=== PATIENT | female | born 1970 | race Caucasian/White ===

== ENCOUNTER 2023-05-14 09:58 | Outpatient (AMB) | payer OTHER, SELFPAY ==
[2023-05-14 10:15] VITALS: BP 118/72; PULSE 72; O2SAT 96; BMI 16.7
--- NOTE | 2023-05-14 10:15 | MHC.PC.OV ---
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 Patient would like gyno referral. She sould also like to talk about loss of sleep. 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 Peacock Last office visit/CPE: > 6 years Acute issue(s): ?Lipoma L foot pain and hammertoe - requests referrral b/L Forearm tendonitis R> L Sleep problems PMHx: Arthritis b/L hands. Cervical disc herniation. SurgHx: R carpal tunnel FHx: Mom: Allergies SocHx: Smoking 3 packs per week. EtOH 2 gl about once a week PFSH Medical History (Updated 05/14/23 @ 11:28 by Patrice Hitchcock) Carpal tunnel syndrome of right wrist Weight loss Surgical History (Updated 05/14/23 @ 10:28 by Maria Victoria Vásquez CMA) H/O lymph node excision Family History (Updated 05/14/23 @ 10:31 by Maria Victoria Vásquez CMA) Mother Allergies Father Rheumatoid arthritis Maternal Uncle Substance abuse Brother Mental health disorder Social History (Updated 05/14/23 @ 10:36 by Maria Victoria Vásquez CMA) Household Members: Spouse Both parents involved: No Caregiver staying overnight: No Housing: House Are you a primary career representative to a significant other at home: No Do you presently have visiting nurse or other home services: No 75 years or older and lives alone: No Alcohol intake: current Patient Tobacco Use Status: Current everyday Tobacco user Cigarettes Per Day: 3 e-Cigarette/Vaping Use: Former Use Special to needs: No service: No Current occupational status: employed 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 1. Little interest or pleasure in doing things: several days 2. Feeling down, depressed, or hopeless: more than half the days 3. Trouble falling or staying asleep, or sleeping too much: nearly every day 4. Feeling tired or having little energy: more than half the days 5. Poor appetite or overeating: several days 6. Feeling bad about yourself - or that you are a failure or have let yourself or your family down: several days 7. Trouble concentrating on things, such as reading the newspaper or watching television: several days 8. Moving or speaking so slowly that other people could have noticed. Or the opposite - being so fidgety or restless that you have been moving around a lot more than usual: nearly every day 9. Thoughts that you would be better off or of hurting yourself in some way: not at all Total score: 14 Source: Developed by Drs. Santos Hanna, Delia Kamara, Freddie Ramos and colleagues, with an educational jillian from [employer]. Thrive Questionnaire I am a: Patient What is your living situation today?: I have a steady place to live Within the past 12 months, did the food you bought not last and you didn't have the money to get more?: Never true Within the past 12 months, did you worry whether your food would run out before you got money to buy more?: Never true Do you have trouble paying for medicines?: Yes Do you have trouble getting transportation to medical appointments?: No Do you have trouble paying your heating and electricity bill?: No Do you have trouble taking care of your child, family member or friend?: No Do you have trouble with day-to-day activities such as bathing, preparing meals, shopping, managing finances, etc.?: No Are you currently unemployed and looking for a job?: Yes Are you interested in more education?: Yes AUDIT C Alcohol Use Questionnaire (AUDIT-C) 1. How often do you have a drink containing alcohol?: Monthly or less 2. How many drinks containing alcohol do you have on a typical day when you are drinking?: 1 or 2 3. How often do you have six or more drinks on one occasion?: Never Total Score: 1 JOSE-7 AMB Questionnaire JOSE-7 Feeling nervous, anxious, or on edge: 2 = More than half the days Not being able to stop or control worryin = Nearly every day Worrying too much about different things: 3 = Nearly every day Trouble relaxin = More than half the days Being so restless that it is hard to sit still: 2 = More than half the days Becoming easily annoyed or irritable: 1 = Several days Feeling afraid as if something awful might happen: 0 = Not at all Total JOSE-7 score (0-4 normal; 5-9 mild; 10-14 moderate; 15-21 severe): 13 Source: Developed by Drs. Santos Hanna, Delia Kamara, Freddie Ramos and colleagues, with an educational jillian from [employer]. Review of Systems Const Denies chills, Denies fatigue, Denies fever(s), Denies headache(s) and Denies weakness ENT Denies dizziness and Denies headache(s) Card Denies chest pain, Denies lightheadedness, Denies dyspnea and Denies other (Palpitations) Resp Denies cough, Denies dyspnea, Denies wheezing and Denies other ( shortness of breath) Musc Denies numbness and Denies tingling Neuro Denies dizziness, Denies headache(s), Denies numbness, Denies tingling, Denies paresthesias and Denies weakness Psych Denies anxiety and Denies depression Endo Denies fatigue Aller/Immun Denies wheezing Physical exam (Primary Care) Vital Signs: Last Vital Signs Pulse 72 05/14/23 10:15 BP 118/72 05/14/23 10:15 Pulse Ox 96 05/14/23 10:15 Oxygen Delivery Method Room Air 05/14/23 10:15 BMI result Body Mass Index 16.7 Tobacco/Smoking Status: Tobacco use Status Tobacco use date assessed 05/14/23 05/14/23 10:44 Patient Tobacco Use Status Current everyday Tobacco 05/14/23 10:44 e-Cigarette/Vaping Use Former Use 05/14/23 10:44 PHQ-9: PHQ-9 Score PHQ-9: Total score 14 05/14/23 11:05 Const General: no acute distress and well developed Nutritional Appearance: well nourished Orientation/consciousness: patient oriented x3 HENMT Head: Yes normocephalic and Yes atraumatic Eyes General: appearance normal, both eyes and all related structures Pupils: Equal, round and reactive pupils present EOM: EOMs intact bilaterally Resp Effort & Inspection: normal respiratory effort Auscultation: clear to auscultation bilaterally Cardio Rate: regular rate Rhythm: regular rhythm Heart sounds: S1 normal heart sound present, S2 normal heart sound present, no gallops, no murmurs and no rubs Neuro General: patient oriented x3 and gait normal Cranial nerves: Yes Equal, round and reactive pupils present Psych Affect: normal affect Assessment and Plan Assessment & Plan (1) Mass of left axilla: Code(s): R22.32 - Localized swelling, mass and lump, left upper limb Plan: Likely a lipoma; mass is rounded, heterogeneous and soft without matting. Will check an ultrasound to rule out other possibilities (2) Left foot pain: Code(s): M79.672 - Pain in left foot Plan: Patient requests referral to Podiatry which was made (3) Smoker: Code(s): F17.200 - Nicotine dependence, unspecified, uncomplicated Plan: Will give her Nicorette gum as requested (4) COPD (chronic obstructive pulmonary disease): Code(s): J44.9 - Chronic obstructive pulmonary disease, unspecified Plan: Likely 40 pack year history of smoking. Mild COPD changes heard on auscultation Check chest x-ray (5) Cervical disc herniation: Code(s): M50.20 - Other cervical disc displacement, unspecified cervical region Plan: History of cervical disc herniation and patient still has ongoing cervicalgia and neck muscle tension She does not want medications and agrees to physical therapy which she has had in the distant past. Physical therapy ordered (6) Shoulder pain: Code(s): M25.519 - Pain in unspecified shoulder Plan: Likely secondary to neck pain As above, physical therapy ordered (7) Difficulty sleeping: Code(s): G47.9 - Sleep disorder, unspecified Plan: This appears to be secondary to anxiety Trial sertraline (8) Forearm tendonitis: Code(s): M77.8 - Other enthesopathies, not elsewhere classified Plan: Referred for occupational therapy Can also use Aspercreme OTC (9) Laboratory exam ordered as part of routine general medical examination: Code(s): Z00.00 - Encounter for general adult medical examination without abnormal findings Plan: Check labs Orders: Orders Comprehensive [place]. Panel Fast Today Z00.00 - Encounter for general adult medical examination without abnormal findings Lipid Panel Today Z00.00 - Encounter for general adult medical examination without abnormal findings TSH reflex Free T4 Today Z00.00 - Encounter for general adult medical examination without abnormal findings Vitamin D 25-OH Total Today E55.9 - Vitamin D deficiency, unspecified Microalbumin, Random (w Creat) Today I10 - Essential (primary) hypertension UA and rflx microscopic Today Z00.00 - Encounter for general adult medical examination without abnormal findings OT Evaluation and Treatment Today M77.8 - Other enthesopathies, not elsewhere classified PT Evaluation and Treatment Today M25.519 - Pain in unspecified shoulder, M50.20 - Other cervical disc displacement, unspecified cervical region US chest Today R22.32 - Localized swelling, mass and lump, left upper limb XR chest 2V Today F17.200 - Nicotine dependence, unspecified, uncomplicated, J44.9 - Chronic obstructive pulmonary disease, unspecified Referrals [employer] Referral Z12.4 - Encounter for screening for malignant neoplasm of cervix Podiatry Referral M79.672 - Pain in left foot Medications: New sertraline 25 mg PO DAILY 30 tabs 2RF 30 days nicotine (polacrilex) (Nicorette) 2 mg buccal Q2H 120 ea 3RF 28 days Coding Level of Care Code New Pt Level 4 (33306) Diagnoses Mass of left axilla R22.32 Left foot pain M79.672 Smoker F17.200 COPD (chronic obstructive pulmonary disease) J44.9 Cervical disc herniation M50.20 Shoulder pain M25.519 Difficulty sleeping G47.9 Forearm tendonitis M77.8 Laboratory exam ordered as part of routine general medical examination Z00.00
== END 2023-05-14 11:37 | disposition home or self-care (01) ==
PROVIDERS: Visit Provider Family Medicine
DX: R22.32 Localized swelling, mass and lump, left upper limb (principal); M79.672 Pain in left foot; F17.200 Nicotine dependence, unspecified, uncomplicated; J44.9 Chronic obstructive pulmonary disease, unspecified; M50.20 Other cervical disc displacement, unspecified cervical region; M25.519 Pain in unspecified shoulder; G47.9 Sleep disorder, unspecified; M77.8 Other enthesopathies, not elsewhere classified; Z00.00 Encounter for general adult medical examination without abnormal findings
CPT/HCPCS: 99204

== ENCOUNTER 2023-05-26 11:13 | Outpatient (REF) | payer OTHER, SELFPAY ==
--- NOTE | ~2023-05-26 | US_ITS ---
EXAMINATION: US CHEST CLINICAL INFORMATION: Mass left axilla, rounded soft, question lipoma versus lymph node. Left flank mass under/lateral to left axilla. COMPARISON: None available. TECHNIQUE: Targeted ultrasound images were obtained by the theatre manager of the area of concern as indicated by the patient in the left flank, just under and lateral to the left axilla. Radiologist was not in attendance. Images were later provided for interpretation. FINDINGS: In the area of concern indicated by the patient in the left flank, just under and lateral to the left axilla, there is a 3.7 x 4.7 x 0.7 cm well-circumscribed, hypoechoic mass with striations. Internal vascularity was not demonstrated. US/US chest IMPRESSION: 1. 4.7 cm soft tissue mass in the area of concern indicated by the the patient in the left flank, just under and lateral to the left axilla. Decisions regarding further management including additional imaging such as MRI, treatment, surgical consultation and/or biopsy should be based on the clinical assessment. Low-grade liposarcomas may be sonographically indistinguishable from lipomas on ultrasound images. 2. Recommend follow up ultrasound in 6 months.
--- NOTE | ~2023-05-26 | XR_ITS ---
EXAMINATION: XR CHEST CLINICAL INFORMATION: Nicotine dependence. COMPARISON: None available. TECHNIQUE: 2 views of the chest were obtained. FINDINGS: There is generalized hyperinflation. No focal infiltrate or pleural effusions. The heart and mediastinal structures are unremarkable. XR/XR chest 2V IMPRESSION: Generalized hyperinflation is nonspecific, but can be seen with COPD. No acute cardiopulmonary process.
[2023-05-26 13:52] LABS: Alanine Aminotransferase 17 U/L (0-31); Albumin Level 4.4 g/dL (3.5-5.0); Alkaline Phosphatase 55 U/L (39-117); Anion Gap 11 (12-20); Aspartate Amino Transferase 22 U/L (5-31); Bilirubin Total 0.3 mg/dL (0.0-1.0); Blood Urea Nitrogen 12 mg/dL (9-16); Calcium 9.6 mg/dL (8.4-10.2); Carbon Dioxide 31 mmol/L (22-29); Chloride 104 mmol/L (96-108); Cholesterol 208 mg/dL; Estimated Glomerular Filt Rate > 60; Glucose Fasting 113 mg/dL (60-99); HDL Cholesterol 76 mg/dL; LDL Cholesterol Calculated 120 mg/dl; Potassium 3.9 mmol/L (3.3-5.1); Sodium 142 mmol/L (135-145); Total Protein 7.1 g/dL (6.5-8.0); Triglycerides 63 mg/dL
[2023-05-26 14:12] LABS: TSH reflex Free T4 1.48 uIU/mL (0.32-4.0); Vitamin D 25-OH Total 90.6 ng/mL (>30)
[2023-05-26 16:37] LABS: Appearance Urine Turbid; Color Urine Yellow; Glucose Urine UA Negative (Negative); Leukocyte Esterase Urine Negative (Negative); Nitrite Urine Negative (Negative); Specific Gravity - Urine >= 1.030 (1.005-1.025); UMIC TRIGGER UA YES; Urine Blood Trace (Negative); Urine Ketones Negative (Negative); Urine Protein Negative (Neg-Trace)
[2023-05-26 17:00] LABS: Bacteria Urine Trace (None Seen); Hyaline Casts Urine 0-2 /LPF (0-2); RBC Urine 0-2 /HPF (0-2); WBC Urine 0-5 /HPF (0-5)
[2023-05-26 17:25] LABS: Creatinine Urine 199.62 mg/dL; Microalbum/Creatinine Ratio Ur 11.5 ug/mg cr
== END 2023-05-26 11:14 | disposition home or self-care (01) ==
LOC: HO.HMGCX 11:13
PROVIDERS: PCP Family Medicine; Visit Provider Family Medicine
DX: Z00.00 Encounter for general adult medical examination without abnormal findings (principal); J44.9 Chronic obstructive pulmonary disease, unspecified; R22.32 Localized swelling, mass and lump, left upper limb; I10 Essential (primary) hypertension; E55.9 Vitamin D deficiency, unspecified; F17.200 Nicotine dependence, unspecified, uncomplicated
CPT/HCPCS: 36415; 71046; 76604; 80053; 80061; 81001; 82043; 82306; 84443

== ENCOUNTER → 2023-07-19 11:30 | Outpatient (BNVA) | payer OTHER, SELFPAY | PROVIDERS: PCP Family Medicine; Visit Provider Obstetrics & Gynecology ==

== ENCOUNTER 2023-08-10 14:00 | Outpatient (AMB) | payer OTHER, SELFPAY ==
[2023-08-10 14:03] VITALS: BP 118/68; PULSE 87; O2SAT 97; BMI 16.5
--- NOTE | 2023-08-10 14:03 | MHC.PC.OV ---
Vital Signs 08/10/23 14:03 Height 5 ft 6 in Weight 102 lb 2 oz BMI 16.5 BP 118/68 Blood Pressure Location Lt brachial Position Sitting Pulse 87 Pulse Source Pulse Oximeter Pulse Oximetry (%) 97 Oxygen Delivery Method Room Air Intake Visit Reasons: Extended exam with f/u labs and health maintenance Intake Note: Patient is here for an extended exam with follow up labs, and is concerned about Sertraline and glacouma, she has a history in the father's side with him and paternal grandfather. Patient is requesting dermatology referral due to white spots on her arms. Allergies codeine Allergy (Mild, Verified 05/14/23 10:23) Itching trazedone Allergy (Mild, Uncoded 05/14/23 10:23) twitching Tobacco use date assessed: 05/14/23 HPI Extended exam with f/u labs and health maintenance HPI Details 52 y/o female presents for an extended exam with f/u labs and health maintenance. Labs were drawn 05/26/23. Reviewed labs with pt. Triglycerides 63. TC 208. LDL 120. HDL 76. Elevated fasting glucose of 113. A1c today 08/10/23 is 5.8%. Patient is requesting dermatology referral due to white spots on her arms. Pt reports she prefers not to take sertraline due to concerns about glaucoma. She had been on sertraline due to issues with depression/anxiety. Pt reports she was not able to tolerate nicotine gum well. She states she has never had a colonoscopy. HPI Comments History of Present Illness Details Documentation assistance for Landry Hadley MD, was provided by Patrice Hitchcock, Veterinarian on 08/10/2023 2:43 PM EST. I, Dr. Hadley, have read, observed, and verified documentation. [facility] Medical History Carpal tunnel syndrome of right wrist Weight loss Surgical History H/O lymph node excision Family History Mother Allergies Father Rheumatoid arthritis Maternal Uncle Substance abuse Brother Mental health disorder Father Glaucoma Paternal Grandfather Glaucoma Social History Household Members: Spouse Both parents involved: No Caregiver staying overnight: No Housing: House Are you a primary customer care agent to a significant other at home: No Do you presently have visiting nurse or other home services: No 75 years or older and lives alone: No Alcohol intake: current Patient Tobacco Use Status: Current everyday Tobacco user Cigarettes Per Day: 3 e-Cigarette/Vaping Use: Former Use Special to needs: No service: No Current occupational status: employed 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 Cognitive needs: No Hearing needs: No Vision needs: Yes (glasses) Review of Systems Const Denies chills, Denies fatigue, Denies fever(s), Denies headache(s) and Denies weakness Eyes Denies change in vision ENT Denies dizziness, Denies headache(s), Denies hearing loss, Denies nasal congestion, Denies sinus pain, Denies sinus pressure and Denies sore throat Card Denies chest pain, Denies lightheadedness, Denies dyspnea and Denies other (palpitations) Resp Denies cough, Denies dyspnea and Denies wheezing GI Denies abdominal pain, Denies melena, Denies hematochezia, Denies change in bowel habits, Denies dyspepsia and Denies nausea Denies hematuria and Denies dysuria Musc Denies abnormal gait, Denies myalgias, Denies arthralgias, Denies numbness and Denies tingling Skin/Breast Denies rash, Denies unusual bruising and Denies wounds Neuro Denies abnormal gait, Denies dizziness, Denies headache(s), Denies memory loss, Denies numbness, Denies Sensory deficit (Neuro), Denies tingling and Denies weakness Psych Reports anxiety, Reports depression and Denies memory loss Endo Denies cold intolerance, Denies fatigue, Denies heat intolerance, Denies polydipsia and Denies polyuria Gunnar/Lymph Denies easy bleeding and Denies easy bruising Aller/Immun Denies wheezing Physical exam (Primary Care) Vital Signs: Last Vital Signs Pulse 87 08/10/23 14:03 BP 118/68 08/10/23 14:03 Pulse Ox 97 08/10/23 14:03 Oxygen Delivery Method Room Air 08/10/23 14:03 BMI result Body Mass Index 16.5 Tobacco/Smoking Status: Tobacco use Status Tobacco use date assessed 05/14/23 08/10/23 14:05 Patient Tobacco Use Status Current everyday Tobacco 08/10/23 14:05 e-Cigarette/Vaping Use Former Use 08/10/23 14:05 Const General: no acute distress, well developed, alert and awake Nutritional Appearance: underweight Orientation/consciousness: patient oriented x3 HENMT Head: Yes normocephalic and Yes atraumatic Ears: hearing grossly normal bilaterally and TM's normal bilaterally General nose exam: Normal external nose present and Normal nares present Mouth: Normal oral and palatal mucosa present and moist mucous membranes Teeth and gingiva: dentition normal Throat: Yes posterior oropharynx normal Eyes General: appearance normal, both eyes and all related structures Pupils: Equal, round and reactive pupils present and Pupil accommodation reflex normal EOM: EOMs intact bilaterally Neck Neck: Yes normal visual inspection, Yes no lymphadenopathy and Yes trachea midline Thyroid: Thyroid normal Carotids: no bruits Lymphatic: no lymphadenopathy noted Chest Chest palpation & inspection: normal inspection of the chest Resp Effort & Inspection: normal respiratory effort Auscultation: clear to auscultation bilaterally Cardio Rate: regular rate Rhythm: regular rhythm Heart sounds: S1 normal heart sound present, S2 normal heart sound present, no gallops, no murmurs and no rubs Bruits: no abdominal aortic bruits and no carotid bruits GI Palpation (GI): No Abdominal aortic bruit present, Soft to palpation, nontender, No hepatosplenomegaly present and No Rebound tenderness present Auscultation: normal bowel sounds General: Yes no CVA tenderness Back/Spine/Pelvis Back: no CVA tenderness Cervical Spine: cervical ROM normal and No Cervical spine tenderness Thoracic/Lumbar Spine: thoraco-lumbar ROM normal, No pain with thoraco-lumbar ROM, No thoracic spinal tenderness and No lumbar spinal tenderness Skin Lesions: no lesions Rashes: no rashes Trauma: no lacerations or abrasions Wounds: no wounds Nails: normal Neuro General: patient oriented x3 Cranial nerves: Yes Equal, round and reactive pupils present Cognition (Neuro): normal cognition Gait exam (Neuro): Normal gait present Motor exam (neuro): 5/5 motor strength present throughout Sensory Exam: No Sensory deficit (Neuro) Deep tendon reflexes (DTR's): Right patellar reflex intensity grade: 2+ and Left patellar reflex intensity grade: 2+ Extrem General: Yes normal to inspection and No edema Psych Appearance: grossly normal Affect: normal affect Attitude: cooperative Thought process: Normal thought process present Assessment and Plan Assessment & Plan (1) Underweight: Code(s): R63.6 - Underweight Plan: May?be?multifactoral Patient?has?COPD?and?advised?smoking?cessation Also?has?had?issues?with?digestion.??She?is?taking?a?probiotic?which?she?says?helps Will?refer?to?Gastroenterology Advised?protein?shake?and?will?give?her?a?script?for?Glucerna?as?her?blood?sugars?are?elevated (2) Depression with anxiety: Code(s): F41.8 - Other specified anxiety disorders Plan: Patient?did?not?take?sertraline?as?she?was?worried?about?the?possibility?of?glaucoma?which?she?does?not?have She?is?also?smoking?and?was?interested?in?trying?bupropion?because?it?could?help?with?anxiety?as?well?as?smoking. Script?sent?for?bupropion (3) Smoker: Code(s): F17.200 - Nicotine dependence, unspecified, uncomplicated Plan: Advised?cessation?as?she?has?COPD Will?give?her?a?script?for?bupropion COPD?appears?stable (4) Breast cancer screening by mammogram: Code(s): Z12.31 - Encounter for screening mammogram for malignant neoplasm of breast Plan: Due?for?mammogram Ordered (5) Cyst of skin: Code(s): L72.9 - Follicular cyst of the skin and subcutaneous tissue, unspecified Plan: Referred?to?dermatology (6) Screening for cervical cancer: Code(s): Z12.4 - Encounter for screening for malignant neoplasm of cervix Plan: Has?email marketing specialist?care?at?[facility] [place] [facility] Follow-up?with?email marketing specialist?as?recommended (7) Screening for colon cancer: Code(s): Z12.11 - Encounter for screening for malignant neoplasm of colon Plan: Due?for?colonoscopy?and?referred?to?C?GI (8) Pre-diabetes: Code(s): R73.03 - Prediabetes Plan: Elevated?fasting?blood?sugar?and?her?A1c?is?5.8%;?pre?diabetes?range. Strong?family?history?of?diabetes?as?her?father?has?diabetes Encouraged?a?diet?lower?in?sugars?and?starches.??However,?patient?is?underweight?and?needs?to?keep?calories?up?as?well.; referred?to?GI?to?help?with?difficulty?gaining?weight,?partly?due?to?tolerating?certain?foods. (9) COPD (chronic obstructive pulmonary disease): Code(s): J44.9 - Chronic obstructive pulmonary disease, unspecified Plan: Patient?is?a?long-time?smoker?though?she?has?been?weaning?this?down. Advised?cessation Currently?stable (10) Tinea versicolor: Code(s): B36.0 - Pityriasis versicolor Plan: Can?try?Nizoral?shampoo. Referred?to?dermatology?at?her?request (11) Mass of left axilla: Code(s): R22.32 - Localized swelling, mass and lump, left upper limb Plan: Mass?at?left?axilla,?likely?lipoma Patient?notes?no?change?today. I?have?ordered?a?six-month?follow-up. (12) Adult general medical exam: Code(s): Z00.00 - Encounter for general adult medical examination without abnormal findings Plan: 52-year-old?female?presents?for?an?extended?exam Encouraged?healthy?diet?with?active?lifestyle?and?plenty?of?exercise Orders: Orders AMB Hemoglobin A1c Today Z13.9 - Encounter for screening, unspecified MM tomosynthesis screening BI Today B36.0 - Pityriasis versicolor, Z12.31 - Encounter for screening mammogram for malignant neoplasm of breast Referrals Dermatology Referral B36.0 - Pityriasis versicolor, L72.9 - Follicular cyst of the skin and subcutaneous tissue, unspecified Gastroenterology Referral R63.6 - Underweight, Z12.11 - Encounter for screening for malignant neoplasm of colon Medications: New nut.tx.gluc.intol,lac-free,soy (Glucerna oral liquid) 1 ea PO DAILY 30 days 7,110 mL 4RF R63.6 - Underweight, R73.03 - Prediabetes bupropion HCl 75 mg PO BID 30 days 60 tabs 1RF ketoconazole 1% (Nizoral A-D) 1 appl topical 2XW 14 days 200 mL 0RF Discontinued nicotine (polacrilex) (Nicorette) Discontinued Reason: Doctor's Order 2 mg buccal Q2H 28 days 120 ea 3RF sertraline Discontinued Reason: Doctor's Order 25 mg PO DAILY 30 days 30 tabs 2RF Coding Level of Care Code Est Pt Level 5 (37761) Diagnoses Underweight R63.6 Depression with anxiety F41.8 Smoker F17.200 Breast cancer screening by mammogram Z12.31 Cyst of skin L72.9 Screening for cervical cancer Z12.4 Screening for colon cancer Z12.11 Pre-diabetes R73.03 COPD (chronic obstructive pulmonary disease) J44.9 Tinea versicolor B36.0 Mass of left axilla R22.32 Adult general medical exam Z00.00
== END 2023-08-10 14:57 | disposition home or self-care (01) ==
PROVIDERS: PCP Family Medicine; Visit Provider Family Medicine
DX: Z00.00 Encounter for general adult medical examination without abnormal findings (principal); J44.9 Chronic obstructive pulmonary disease, unspecified; R63.6 Underweight; F41.8 Other specified anxiety disorders; F17.210 Nicotine dependence, cigarettes, uncomplicated; L72.9 Follicular cyst of the skin and subcutaneous tissue, unspecified; R73.03 Prediabetes; B36.0 Pityriasis versicolor; R22.32 Localized swelling, mass and lump, left upper limb
CPT/HCPCS: 99396

== ENCOUNTER 2023-10-06 11:22 | Outpatient (REF) | payer OTHER, SELFPAY ==
[2023-10-06 13:00] LABS: MANUAL DIFF FLAG NO
[2023-10-06 13:27] LABS: Basophils Percent Auto 0.4 % (0-2); Eosinophils Absolute Auto 0.2 X10*3/uL (0.0-0.4); Eosinophils Percent Auto 2.9 % (0-4); Hematocrit 41.7 % (37.0-47.0); Hemoglobin 13.7 g/dl (12.0-16.0); Imm Gran Abs Auto 0.03 X10*3/uL (0.00-0.03); Imm Gran Pct Auto 0.4 % (0.0-0.4); Lymphocytes Percent Auto 26.4 % (20-40); Mean Corpuscular HGB Conc 32.9 g/dl (31.0-35.0); Mean Corpuscular Hemoglobin 30.4 pg (27.0-33.0); Mean Corpuscular Volume 92.7 fL (80.0-98.0); Monocytes Absolute Auto 0.6 X10*3/uL (0.1-1.2); Neutrophils Absolute Auto 4.7 x10*3/uL (2.0-8.3); Neutrophils Percent Auto 61.9 % (45-73); Platelet Count 273 X10*3/uL (160-400); Red Cell Distribution Width 12.6 % (11.0-16.0); White Blood Count 7.6 X10*3/uL (4.8-10.8)
[2023-10-06 13:59] LABS: Alanine Aminotransferase 15 U/L (0-31); Albumin Level 4.3 g/dL (3.5-5.0); Alkaline Phosphatase 49 U/L (39-117); Anion Gap 12 (12-20); Aspartate Amino Transferase 22 U/L (5-31); Bilirubin Total 0.2 mg/dL (0.0-1.0); Blood Urea Nitrogen 16 mg/dL (9-16); Calcium 9.4 mg/dL (8.4-10.2); Carbon Dioxide 30 mmol/L (22-29); Chloride 104 mmol/L (96-108); Estimated Glomerular Filt Rate > 60; Glucose Random 105 mg/dL (60-115); Potassium 4.5 mmol/L (3.3-5.1); Sodium 141 mmol/L (135-145)
[2023-10-06 14:09] LABS: Thyroid Stimulating Hormone 1.09 uIU/mL (0.32-4.0)
[2023-10-07 14:00] LABS: Transglutaminase IgA <1.0 U/mL
[2023-10-09 10:58] LABS: Endomysial IgA Antibody Negative (Negative)
== END 2023-10-06 11:23 | disposition home or self-care (01) ==
LOC: HO.LAB 11:22
PROVIDERS: PCP Family Medicine; Visit Provider Physician Assistant
DX: K21.9 Gastro-esophageal reflux disease without esophagitis (principal); K58.9 Irritable bowel syndrome, unspecified; R19.8 Other specified symptoms and signs involving the digestive system and abdomen; F17.200 Nicotine dependence, unspecified, uncomplicated; R21 Rash and other nonspecific skin eruption; A04.8 Other specified bacterial intestinal infections; G89.29 Other chronic pain; R10.9 Unspecified abdominal pain; Z79.899 Other long term (current) drug therapy
CPT/HCPCS: 36415; 80053; 84443; 85025; 86231; 86364; 99202

== ENCOUNTER 2023-10-06 11:22 | Outpatient (AMB) | payer OTHER, SELFPAY ==
--- NOTE | 2023-10-06 11:35 | MHC.OFFVIS ---
Intake Vital Signs 10/06/23 11:41 Height 5 ft 6 in Weight 108 lb BMI 17.4 BP 138/66 Blood Pressure Location Lt brachial Position Sitting Pulse 68 Intake Visit Reasons: Colonoscopy screening Intake Note: Patient new consult for pre colonoscopy screening. Patient cc: abdominal pain radiating to her back with burning sensation, denies any other GI issues. Neonatal Nurse Required: No Accompanied by: Self / Same As Patient Allergies codeine Allergy (Mild, Verified 10/06/23 11:35) Itching trazodone Adverse Reaction (Mild, Verified 10/06/23 11:35) twitching Medication List - Last Reconciled 10/06/23 by Ju Moreau PA-C bupropion HCl 75 mg PO BID 30 days cholecalciferol (vitamin D3) 50 mcg PO DAILY ketoconazole 1% (Nizoral A-D) 1 appl topical 2XW 14 days multivitamin with minerals (Hair,Skin and Nails tablet) 1 tab PO DAILY nut.tx.gluc.intol,lac-free,soy (Glucerna oral liquid) 1 ea PO DAILY 30 days HPI HPI Comments History of Present Illness Details 53-year-old female referred for index screening colonoscopy- no family hx GI cancers. Since her 30s she has had RUQ pain with burning- take probiotics- and pepto- she is a smoker-etoh social She has always been thin- difficulty maintaining wt Intermittent body rash since her 30s-has not seen Derm Bowels are normal No N/V/D- occ-no fever or chills PFSH Medical History Carpal tunnel syndrome of right wrist Weight loss Surgical History H/O lymph node excision Family History Mother Allergies Father Rheumatoid arthritis Maternal Uncle Substance abuse Brother Mental health disorder Father Glaucoma Paternal Grandfather Glaucoma Social History Household Members: Spouse Both parents involved: No Caregiver staying overnight: No Housing: House Are you a primary patient care provider to a significant other at home: No Do you presently have visiting nurse or other home services: No 75 years or older and lives alone: No Alcohol intake: current Patient Tobacco Use Status: Current everyday Tobacco user Cigarettes Per Day: 3 e-Cigarette/Vaping Use: Former Use Special to needs: No service: No Current occupational status: employed 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 Cognitive needs: No Hearing needs: No Vision needs: Yes (glasses) Review of Systems Const All systems reviewed & are unremarkable except as noted in HPI and below Card Denies chest pain and Denies dyspnea Resp Denies dyspnea GI Reports abdominal pain, Denies hematochezia, Reports change in bowel habits and Denies heartburn Psych Reports anxiety Physical Exam Vital Signs: Last Vital Signs Pulse 68 10/06/23 11:41 BP 138/66 10/06/23 11:41 BMI result Body Mass Index 17.4 Const General: cooperative, healthy appearing, comfortable, no acute distress and anxious Nutritional Appearance: thin Limitations: no limitations Eyes Sclerae: sclerae normal Resp Effort & Inspection: normal respiratory effort and able to speak in complete sentences Auscultation: clear to auscultation bilaterally, no rales, no rhonchi and no wheezes Cardio Rate: regular rate Rhythm: regular rhythm Heart sounds: S1 normal heart sound present and S2 normal heart sound present GI Palpation (GI): Soft to palpation and nontender Auscultation: normal bowel sounds Skin Rashes: rashes noted (fine flat mild erthem- forearms- chest- since 30s intermit) Extrem General: Yes full ROM Psych Appearance: well kempt Speech and movement: Pressured speech present Affect: Anxious affect present Attitude: cooperative Thought process: Normal thought process present Thought content: Normal thought content present Assessment & Plan Assessment & Plan (1) Chronic abdominal pain: Code(s): R10.9 - Unspecified abdominal pain; G89.29 - Other chronic pain Plan: U/S- she will call for results (2) Acid reflux: Comment: HP stool antigen-if positive will treat Code(s): K21.9 - Gastro-esophageal reflux disease without esophagitis Plan: After submitting stool sample begin- pantoprazole 20 mg- (3) Screening for colon cancer: Code(s): Z12.11 - Encounter for screening for malignant neoplasm of colon (4) Skin rash: Comment: mild, non raised bilat forearms- Code(s): R21 - Rash and other nonspecific skin eruption Plan: labs Plan EGD/ colonoscopy U/S eval GB- Stool- HP pantoprazole Orders: Orders H pylori Ag Stool Today A04.8 - Other specified bacterial intestinal infections Transglutaminase IgA Today G89.29 - Other chronic pain, R10.9 - Unspecified abdominal pain, R21 - Rash and other nonspecific skin eruption Thyroid Stimulating Hormone Today R19.8 - Other specified symptoms and signs involving the digestive system and abdomen EGD/[place] Combo - GI Use Only Today G89.29 - Other chronic pain, K21.9 - Gastro-esophageal reflux disease without esophagitis, R10.9 - Unspecified abdominal pain, Z12.11 - Encounter for screening for malignant neoplasm of colon US abdomen complete Today G89.29 - Other chronic pain, K21.9 - Gastro-esophageal reflux disease without esophagitis, R10.9 - Unspecified abdominal pain Complete Blood Count Auto Diff Today G89.29 - Other chronic pain, R10.9 - Unspecified abdominal pain, R21 - Rash and other nonspecific skin eruption Comprehensive Met. Panel Today K58.9 - Irritable bowel syndrome without diarrhea Endomysial IgA rflx Titer Today G89.29 - Other chronic pain, R10.9 - Unspecified abdominal pain, R21 - Rash and other nonspecific skin eruption Medications: New pantoprazole 20 mg PO QAM 30 tabs 6RF bisacodyl (Dulcolax (bisacodyl)) Day before procedure, prep day Take 4 tablets by mouth upon awakening followed by large glass of water 20 mg (4 x 5 mg) PO ONCE 1 day 4 tabs 0RF colonoscopy prep Z12.11 - Encounter for screening for malignant neoplasm of colon polyethylene glycol 3350 (Miralax) Take as directed by mouth the day before your procedure. 238 grams PO ONCE 1 day PRN 238 grams 0RF laxative effect Patient Instructions: EGD/ colonoscopy Labs U/S eval GB- Stool- HP pantoprazole 20 mg Coding Level of Care Code New Pt Level 4 (21922) Diagnoses Chronic abdominal pain R10.9; G89.29 Acid reflux K21.9 Screening for colon cancer Z12.11 Skin rash R21 Time Spent (min) 30
[2023-10-06 11:41] VITALS: BP 138/66; PULSE 68; BMI 17.4
== END 2023-10-06 13:07 | disposition home or self-care (01) ==
PROVIDERS: PCP Family Medicine; Visit Provider Physician Assistant
DX: R10.9 Unspecified abdominal pain (principal); G89.29 Other chronic pain; K21.9 Gastro-esophageal reflux disease without esophagitis; Z12.11 Encounter for screening for malignant neoplasm of colon; R21 Rash and other nonspecific skin eruption
CPT/HCPCS: 99204

== ENCOUNTER 2023-11-11 10:46 | Outpatient (AMB) | payer OTHER, SELFPAY ==
[2023-11-11 10:58] VITALS: BP 122/72; PULSE 74; O2SAT 95; BMI 17.6
--- NOTE | 2023-11-11 10:58 | A.OFFPC_ITS ---
Vital Signs 11/11/23 10:58 Height 5 ft 6 in Weight 109 lb BMI 17.6 BP 122/72 Blood Pressure Location Lt brachial Position Sitting Pulse 74 Pulse Source Pulse Oximeter Pulse Oximetry (%) 95 Oxygen Delivery Method Room Air Intake Visit Reasons: f/u underweight and chronic conditions Intake Note: Patient is here to follow up on being underweight, and chronic conditions. Milvia nt is requesting to talk about investment banker. Allergies codeine Allergy (Mild, Verified 11/11/23 11:00) Itching trazodone Adverse Reaction (Mild, Verified 11/11/23 11:00) twitching Tobacco use date assessed: 11/11/23 HPI f/u underweight and chronic conditions HPI Details 53 y/o female presents to f/u [facility] and chronic conditions. Has seen gastroenterology 10/06/23. They plan to do an EGD/colonoscopy and had ordered an ultrasound for her chronic abdominal pain. Weight today 109.4 lbs, which had went up slightly from 108 lbs 10/06/23. Had trialed bupropion for smoking cessations. She notes it has been helping with anxiety and has helped reduce her smoking. She is down to a few cigarettes a day. She notes dermatology has not contacted her yet. [facility] Medical History Carpal tunnel syndrome of right wrist Weight loss Surgical History H/O lymph node excision Family History Mother Allergies Father Rheumatoid arthritis Maternal Uncle Substance abuse Brother Mental health disorder Father Glaucoma Paternal Grandfather Glaucoma Social History Household Members: Spouse Both parents involved: No Caregiver staying overnight: No Housing: House Are you a primary spiritual care coordinator to a significant other at home: No Do you presently have visiting nurse or other home services: No 75 years or older and lives alone: No Alcohol intake: current Patient Tobacco Use Status: Current everyday Tobacco user Cigarettes Per Day: 3 e-Cigarette/Vaping Use: Former Use Special to needs: No service: No Current occupational status: employed 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 Cognitive needs: No Hearing needs: No Vision needs: Yes (glasses) Review of Systems Const Denies chills, Denies fatigue, Denies fever(s), Denies headache(s) and Denies weakness ENT Denies dizziness and Denies headache(s) Card Denies dyspnea Resp Denies cough, Denies dyspnea, Denies wheezing and Denies other (shortness of breath) Musc Denies numbness and Denies tingling Neuro Denies dizziness, Denies headache(s), Denies numbness, Denies tingling and Denies weakness Psych Denies anxiety and Denies depression Endo Denies fatigue Aller/Immun Denies wheezing Physical exam (Primary Care) Vital Signs: Last Vital Signs Pulse 74 11/11/23 10:58 BP 122/72 11/11/23 10:58 Pulse Ox 95 11/11/23 10:58 Oxygen Delivery Method Room Air 11/11/23 10:58 BMI result Body Mass Index 0.9 Tobacco/Smoking Status: Tobacco use Status Tobacco use date assessed 11/11/23 11/11/23 11:04 Patient Tobacco Use Status Current everyday Tobacco 11/11/23 11:04 e-Cigarette/Vaping Use Former Use 11/11/23 11:04 Const General: well developed; No acute distress Nutritional Appearance: underweight Orientation/consciousness: patient oriented x3 HENMT Head: Yes normocephalic and Yes atraumatic Eyes General: appearance normal, both eyes and all related structures Pupils: Equal, round and reactive pupils present EOM: EOMs intact bilaterally Resp Effort & Inspection: normal respiratory effort Neuro General: patient oriented x3 and gait normal Cranial nerves: Yes Equal, round and reactive pupils present Psych Affect: normal affect Assessment and Plan Assessment & Plan (1) Underweight: Code(s): R63.6 - Underweight Plan: Patient?has?always?been?thin?and?has?had?difficulty?gaining?weight. Also?has?COPD Weight?increased?from?102?at?my?last?visit?to?109. Has?seen?Gastroen terology?and?they?are?working?on?gastritis?issues?and?abdominal?discomfort. Also?encouraged?her?to?quit?smoking?as?this?may?also?improve?her?appetite. Continue?to?look?for?good?sources?of?protein?and ?continue?to?work?at?some?weight?gain. (2) COPD (chronic obstructive pulmonary disease): Code(s): J44.9 - Chronic obstructive pulmonary disease, unspecified Plan: Encouraged?smoking?cessation?again.??Had?given?her?a?script?for?bupropion?which? she?is?taking?and?says?this?is?helping?with?sm oking?cessation?though?she?is?currently?stuck?at?about?2?cigarettes?per?day. Encouraged?her?to?keep?working?at?this (3) Smoker: Code(s): F17.200 - Nicotine dependence, unspecified, uncomplicated Plan: As?above (4) Mass of chest wall: Code(s): R22.2 - Localized swelling, mass and lump, trunk Plan: Patient?has?a?mass?at?left?posterolateral?chest?wall?at?posterior?aspect?of?axi lla A?six-month?follow-up?ultrasound?was?ordered?but?has?not?been?performed?yet Recent?order (5) Mass of left axilla: Code(s): R22.32 - Localized swelling, mass and lump, left upper limb Plan: As?above (6) Skin rash: Comment: mild, non raised bilat forearms- Code(s): R21 - Rash and other nonspecific skin eruption Plan: Patie nt?appears?to?have?tinea?versicolor?and?I?gave?her?a?script?for?ketoconazole.??H er?pharmacy?told?her?that?her?insurance?declined?it?but?neglected?to?tell?her?th at?it?is?only?13?dollars?and?patient?would?have?paid?for?this?out?of?pocket. Encouraged?her?to?ask?them?for?the?prescription.??She?will?let?me?know?if?it?is? too?expensive?for?her. She?is?also?referred?to?dermatology-see?below (7) Cyst of skin: Code(s): L72.9 - Follicular cyst of the skin and subcutaneous tissue, unspecified Plan: Referred?patient?to?[place]?but?they?have?not?called?her?back.?? She?has?some?issues?with?her?insurance?so?I?have?referred?her?to?do?most?Dermato logy. Coding Level of Care Code Est Pt Level 4 (19700) Diagnoses Underweight R63.6 COPD (chronic obstructive pulmonary disease) J44.9 Smoker F17.200 Mass of chest wall R22.2 Mass of left axilla R22.32 Skin rash R21 Cyst of skin L72.9
== END 2023-11-11 11:34 | disposition home or self-care (01) ==
PROVIDERS: PCP Family Medicine; Visit Provider Family Medicine
DX: J44.9 Chronic obstructive pulmonary disease, unspecified (principal); R63.6 Underweight; F17.200 Nicotine dependence, unspecified, uncomplicated; R22.2 Localized swelling, mass and lump, trunk; R22.32 Localized swelling, mass and lump, left upper limb; R21 Rash and other nonspecific skin eruption; L72.9 Follicular cyst of the skin and subcutaneous tissue, unspecified
CPT/HCPCS: 99214

== ENCOUNTER 2023-11-26 10:13 | Outpatient (REF) | payer OTHER, SELFPAY ==
--- NOTE | ~2023-11-26 | US_ITS ---
EXAMINATION: US ABDOMEN COMPLETE CLINICAL INFORMATION: Unspecified abdominal pain. COMPARISON: None available. TECHNIQUE: Real-time imaging of the abdominal viscera. FINDINGS: PANCREAS: Normal. ABDOMINAL AORTA: The proximal, mid, and distal segments are normal in caliber. INFERIOR VENA CAVA: Visualized portions are normal. LIVER: Normal size, contour and echotexture. No evidence of focal liver lesion or intrahepatic ductal dilatation. GALLBLADDER: The gallbladder is physiologically distended. A few small noncalcified mobile gallstones are present. No gallbladder wall thickening or pericholecystic fluid. COMMON BILE DUCT: Normal in caliber measuring 0.5 cm in diameter. RIGHT KIDNEY: Normal. No hydronephrosis. No renal calculi or focal parenchymal lesions. The kidney measures 11.9 cm in maximum dimension. LEFT KIDNEY: The renal cortical echotexture and cortical thickness are normal. No calculi or hydronephrosis. The kidney measures 10.7 cm in maximum dimension. There appears to be a simple cyst in the lower pole. No renal imaging follow-up is recommended for a simple cyst. SPLEEN: Normal. The spleen measures 7.7 cm in maximum dimension. FREE FLUID: None. US/US abdomen complete IMPRESSION: Mild cholelithiasis without evidence of cholecystitis or biliary tract obstruction. No specific source of abdominal pain is identified.
--- NOTE | ~2023-11-26 | US_ITS ---
EXAMINATION: US CHEST CLINICAL INFORMATION: Follow up lump/mass left axilla, rounded soft, question lipoma versus lymph node. Mass left axillary region. COMPARISON: 05/26/2023 ultrasound chest. TECHNIQUE: Targeted ultrasound images were obtained by the carbon dioxide operator of the area of concern as indicated by the patient in the left axillary region. Radiologist was not in attendance. Images were later provided for interpretation. FINDINGS: There is a 3.5 x 0.6 x 3.8 cm well-circumscribed, wider than tall mass area of concern indicated by the patient to the carbon dioxide operator in the left axillary region. Internal striations were demonstrated. This lesion is 0.4 cm deep to the skin. No significant internal vascularity was demonstrated. Previous exam demonstrated a 3.7 x 0.7 x 4.4 cm mass in the area of concern indicated by the patient in the left flank, just under the left arm/axillary region. US/US chest IMPRESSION: Similar size of 3.8 cm soft tissue mass in the area of concern indicated by the patient in the inferior aspect of the left axilla towards the left flank, possibly representing a lipoma. Decisions regarding further management including additional imaging such as MRI, treatment, surgical consultation and/or biopsy should be based on the clinical assessment. Low-grade liposarcomas may be sonographically indistinguishable from lipomas on ultrasound images. Recommend follow-up ultrasound in 6 months.
== END 2023-11-26 10:14 | disposition home or self-care (01) ==
LOC: HO.HMGCX 10:13
PROVIDERS: PCP Family Medicine; Visit Provider Physician Assistant
DX: R22.32 Localized swelling, mass and lump, left upper limb (principal); R22.2 Localized swelling, mass and lump, trunk; R10.9 Unspecified abdominal pain; G89.29 Other chronic pain; K21.9 Gastro-esophageal reflux disease without esophagitis
CPT/HCPCS: 76604; 76700

== ENCOUNTER 2023-12-03 12:02 | Outpatient (REF) | payer OTHER, SELFPAY | END 2023-12-03 12:03 | disposition home or self-care (01) | LOC: HO.LNP 12:02 | PROVIDERS: Visit Provider Physician Assistant | DX: A04.8 Other specified bacterial intestinal infections (principal); R21 Rash and other nonspecific skin eruption | CPT/HCPCS: 87338 ==

== ENCOUNTER 2023-12-08 11:03 | Outpatient (AMB) | payer OTHER, SELFPAY ==
--- NOTE | 2023-12-08 11:06 | A.OFFVIS_ITS ---
Intake Vital Signs 12/08/23 11:08 Height 5 ft 6 in Weight 112 lb BMI 18.1 BP 110/80 Blood Pressure Location Lt brachial Position Sitting Intake Visit Reasons: follow up Intake Note: Patient is seen in office for follow up visit, following acid reflux. Pt c/o: taking the sodium meds provided with relief, currently has no concerns Medical Assistant Dermatology Required: No Accompanied by: Self / Same As Patient Allergies codeine Allergy (Mild, Verified 12/08/23 11:13) Itching trazodone Adverse Reaction (Mild, Verified 12/08/23 11:13) twitching Medication List - Last Reconciled 12/08/23 by Ju Moreau PA-C bisacodyl (Dulcolax (bisacodyl)) 20 mg (4 x 5 mg) PO ONCE 1 day bupropion HCl 75 mg PO BID 30 days cholecalciferol (vitamin D3) 50 mcg PO DAILY ketoconazole 1% (Nizoral A-D) 1 appl topical 2XW 14 days multivitamin with minerals (Hair,Skin and Nails tablet) 1 tab PO DAILY nut.tx.gluc.intol,lac-free,soy (Glucerna oral liquid) 1 ea PO DAILY 30 days pantoprazole 20 mg PO QAM 90 days polyethylene glycol 3350 (Miralax) 238 grams PO ONCE PRN 1 day HPI HPI Comments History of Present Illness Details A 53-year-old smoker, female seen back in October with acid reflux, poor weight gain, she was to do blood work as well as H stool antigen she is here today to follow-up She says she has been doing well she takes probiotics on occasion she felt this is helpful for her Reviewed labs normal TSH, liver enzymes celiac markers were normal as well Abdominal ultrasound mild cholelithiasis otherwise normal Awaiting EGD/ colonoscopy Stool- HP-negative pantoprazole very good response She has had follow-up chest CT - followed for axilla mass Her appetite is good, her weight has been stable Bowels are normal No nausea, vomiting, hematemesis, hematochezia fever chills She does have anxiety PFSH Medical History Carpal tunnel syndrome of right wrist Weight loss Surgical History H/O lymph node excision Family History Mother Allergies Father Rheumatoid arthritis Maternal Uncle Substance abuse Brother Mental health disorder Father Glaucoma Paternal Grandfather Glaucoma Social History Household Members: Spouse Both parents involved: No Caregiver staying overnight: No Housing: House Are you a primary child care specialist to a significant other at home: No Do you presently have visiting nurse or other home services: No 75 years or older and lives alone: No Alcohol intake: current Patient Tobacco Use Status: Current everyday Tobacco user Cigarettes Per Day: 3 e-Cigarette/Vaping Use: Former Use Special to needs: No service: No Current occupational status: employed 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 Cognitive needs: No Hearing needs: No Vision needs: Yes (glasses) Review of Systems Const All systems reviewed & are unremarkable except as noted in HPI and below Card Denies chest pain and Denies dyspnea Resp Denies dyspnea GI Denies abdominal pain, Denies change in bowel habits, Denies heartburn, Denies nausea and Denies hematemesis Psych Reports anxiety Physical Exam Vital Signs: Last Vital Signs BP 110/80 12/08/23 11:08 BMI result Body Mass Index 18.1 Const General: cooperative, comfortable and anxious Nutritional Appearance: thin Orientation/consciousness: patient oriented x3 Limitations: no limitations Eyes Sclerae: sclerae normal Resp Effort & Inspection: normal respiratory effort and able to speak in complete sentences Skin General skin exam: no rashes or lesions noted Neuro General: patient oriented x3 Extrem General: Yes full ROM Psych Mental Status: mental status grossly normal Speech and movement: Pressured speech present Affect: Animated affect present and Anxious affect present Thought process: Flight of ideas present Thought content: Normal thought content present Results Reviewed Results Reviewed: Labs from 10/05/2023 normal TSH, celiac markers negative, normal liver enzymes US/US abdomen complete IMPRESSION: Mild cholelithiasis without evidence of cholecystitis or biliary tract obstruction. No specific source of abdominal pain is identified. Assessment & Plan Assessment & Plan (1) Acid reflux: Comment: Pleasant, extremely anxious- HP stool antigen-negative Code(s): K21.9 - Gastro-esophageal reflux disease without esophagitis Plan: Continue pantoprazole daily Avoid culprits (2) Underweight: Code(s): R63.6 - Underweight Plan: Monitor weight and opportunity to increase calories Plan Continue PPI Await EGD colonoscopy-MiraLax Gatorade prep Medications: Changed From pantoprazole 20 mg PO QAM 30 tabs 6RF To pantoprazole 20 mg PO QAM 90 days 90 tabs 4RF Patient Instructions: Awaiting EGD and colonoscopy-again reviewed procedure Continue PPI Reflux precautions reviewed avoid culprits Encouraged to call with questions or concerns Coding Level of Care Code Est Pt Level 3 (98892) Diagnoses Acid reflux K21.9 Underweight R63.6 Time Spent (min) 30
[2023-12-08 11:08] VITALS: BP 110/80; BMI 18.1
== END 2023-12-08 12:18 | disposition home or self-care (01) ==
PROVIDERS: PCP Family Medicine; Visit Provider Physician Assistant
DX: K21.9 Gastro-esophageal reflux disease without esophagitis (principal); R63.6 Underweight
CPT/HCPCS: 99213

== ENCOUNTER → 2023-12-08 11:03 | Outpatient (BNVA) | payer OTHER, SELFPAY | PROVIDERS: PCP Family Medicine; Visit Provider Physician Assistant | DX: K21.9 Gastro-esophageal reflux disease without esophagitis (principal); R63.6 Underweight | CPT/HCPCS: 99212 ==

== ENCOUNTER 2024-01-03 15:29 | Emergency (ER) | payer OTHER, SELFPAY ==
[2024-01-03 16:09] VITALS: BP 115/85; PULSE 93; O2SAT 98
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
[2024-01-03 16:26] VITALS: BP 125/68; PULSE 60; RESP 14; TEMP 36.9; O2SAT 98; BMI 18.8
== END 2024-01-03 19:03 | disposition home or self-care (01) ==
PROVIDERS: Emergency Provider Emergency Medicine; PCP Radiology Diagnostic Radiology
DX: S16.1XXA Strain of muscle, fascia and tendon at neck level, initial encounter (principal); S46.819A Strain of other muscles, fascia and tendons at shoulder and upper arm level, unspecified arm, initial encounter; S39.012A Strain of muscle, fascia and tendon of lower back, initial encounter; V89.2XXA Person injured in unspecified motor-vehicle accident, traffic, initial encounter; Y93.89 Activity, other specified; Y92.410 Unspecified street and highway as the place of occurrence of the external cause; Y99.9 Unspecified external cause status
CPT/HCPCS: 99282; 99283

== ENCOUNTER 2024-03-14 13:02 | Outpatient (REF) | payer OTHER, SELFPAY ==
[2024-03-15 11:20] LABS: Bacterial Vaginosis PCR POSITIVE (Negative); Candida Group PCR NOT DETECTED (Not Detect); Candida glab krusei PCR NOT DETECTED (Not Detect); Trichomonas vaginalis PCR DETECTED (Not Detect)
[2024-03-15 11:42] LABS: CT PCR NOT DETECTED (Not Detect.); NG PCR NOT DETECTED (Not Detect.)
[2024-03-21 12:49] LABS: HPV mRNA E6/E7 rflx Not Detected (Not Detected)
== END 2024-03-14 13:03 | disposition home or self-care (01) ==
LOC: HO.LAB 13:02
PROVIDERS: PCP Radiology Diagnostic Radiology; Visit Provider Advanced Practice Midwife
DX: Z01.419 Encounter for gynecological examination (general) (routine) without abnormal findings (principal); N94.10 Unspecified dyspareunia; Z78.0 Asymptomatic menopausal state; Z20.2 Contact with and (suspected) exposure to infections with a predominantly sexual mode of transmission
CPT/HCPCS: 0352U; 0353U; 87624; 88142; 99386

== ENCOUNTER 2024-03-14 13:02 | Outpatient (AMB) | payer OTHER, SELFPAY ==
[2024-03-14 13:16] VITALS: BMI 18.6
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
== END 2024-03-14 14:09 | disposition home or self-care (01) ==
PROVIDERS: PCP Radiology Diagnostic Radiology; Visit Provider Advanced Practice Midwife
DX: Z12.4 Encounter for screening for malignant neoplasm of cervix (principal); Z01.419 Encounter for gynecological examination (general) (routine) without abnormal findings; Z11.3 Encounter for screening for infections with a predominantly sexual mode of transmission; Z12.39 Encounter for other screening for malignant neoplasm of breast; N94.10 Unspecified dyspareunia; Z78.0 Asymptomatic menopausal state
CPT/HCPCS: 99386

== ENCOUNTER 2024-06-01 13:22 | Outpatient (AMB) | payer OTHER, SELFPAY ==
--- NOTE | 2024-06-01 13:25 | MHC.PC.OV ---
Vital Signs 06/01/24 13:29 Height 5 ft 6 in Weight 112 lb 2 oz BMI 18.1 BP 130/76 Blood Pressure Location Rt brachial Position Sitting Pulse 70 Pulse Source Pulse Oximeter Pulse Oximetry (%) 95 Oxygen Delivery Method Room Air Intake Visit Reasons: F/u Vitamin D amd HTN- NEEDS PHQ9 Intake Note: Patient is here to follow up on Vit D, HTN. Requesting medications to help stop smoking and help sleep. Senior Applications Engineer Required: No Lead Supply Worker: Not Required per policy Accompanied by: Self / Same As Patient Allergies codeine Allergy (Mild, Verified 06/01/24 13:27) Itching trazodone Adverse Reaction (Mild, Verified 06/01/24 13:27) twitching Medication List - Last Reconciled 06/01/24 by Landry Hadley MD acetaminophen 1,000 mg (2 x 500 mg) PO QID PRN bisacodyl (Dulcolax (bisacodyl)) 20 mg (4 x 5 mg) PO ONCE 1 day bupropion HCl 75 mg PO BID 30 days cholecalciferol (vitamin D3) 50 mcg PO DAILY cyclobenzaprine 5 mg PO TID PRN ketoconazole 1% (Nizoral A-D) 1 appl topical 2XW 14 days metronidazole 500 mg PO Q12H multivitamin with minerals (Hair,Skin and Nails tablet) 1 tab PO DAILY nut.tx.gluc.intol,lac-free,soy (Glucerna oral liquid) 1 ea PO DAILY 30 days pantoprazole 20 mg PO QAM 90 days Tobacco use date assessed: 06/01/24 Dental Screening Dental Screen Date: 06/01/24 Did you have a dental visit in the last 12 months?: No Did you have a dental problem in the last 6 months where you did not have access to dental care?: No Was dental information given to patient?: No HPI F/u Vitamin D amd HTN- NEEDS PHQ9 HPI Details 53 y/o female presents to f/u vitamin d levels, chronic conditions. No recent labs to review. Blood pressure today 130/76. JOSE-7 9 today. Requesting meds for smoking cessation. She reports difficulty sleeping. She reports she does snore/grind her teeth. She denies waking up gasping for air. [facility] Medical History COPD (chronic obstructive pulmonary disease) Smoker Cervical disc herniation Carpal tunnel syndrome of right wrist Weight loss Surgical History H/O lymph node excision Family History Mother Allergies Father Rheumatoid arthritis Maternal Uncle Substance abuse Brother Mental health disorder Father Glaucoma Paternal Grandfather Glaucoma Social History (Updated 06/01/24 @ 13:38 by JOSIAH Merlos) Household Members: Spouse Housing: House Are you a primary childcare aide to a significant other at home: No Do you presently have visiting nurse or other home services: No Alcohol intake: current Alcohol intake frequency: a few times a month Patient Tobacco Use Status: Current everyday Tobacco user Tobacco use type: Cigarette Cigarette Packs Per Day: 0.5 Cigarettes Per Day: 4 e-Cigarette/Vaping Use: Former Use Second Hand Smoke Exposure: Yes Special to needs: No service: No Current occupational status: employed 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 1. Little interest or pleasure in doing things: not at all 2. Feeling down, depressed, or hopeless: not at all 3. Trouble falling or staying asleep, or sleeping too much: not at all 4. Feeling tired or having little energy: not at all 5. Poor appetite or overeating: not at all 6. Feeling bad about yourself - or that you are a failure or have let yourself or your family down: not at all 7. Trouble concentrating on things, such as reading the newspaper or watching television: not at all 8. Moving or speaking so slowly that other people could have noticed. Or the opposite - being so fidgety or restless that you have been moving around a lot more than usual: not at all 9. Thoughts that you would be better off or of hurting yourself in some way: not at all Total score: 0 Depression Screening Interpretation: Negative Depression Screening Done: Yes 47727 - PHQ-9 Billing: Yes Source: Developed by Drs. Santos Hanna, Delia Kamara, Freddie Ramos and colleagues, with an educational jillian from [employer]. Thrive Questionnaire Date Thrive assessed: 06/01/24 I am a: Patient What is your living situation today?: I have a steady place to live Within the past 12 months, did the food you bought not last and you didn't have the money to get more?: Never true Within the past 12 months, did you worry whether your food would run out before you got money to buy more?: Never true Do you have trouble paying for medicines?: No Do you have trouble getting transportation to medical appointments?: No Do you have trouble paying your heating and electricity bill?: No Do you have trouble taking care of your child, family member or friend?: No Do you have trouble with day-to-day activities such as bathing, preparing meals, shopping, managing finances, etc.?: No Are you currently unemployed and looking for a job?: No Are you interested in more education?: No Currently or been in a relationship where the following occur: No concerns reported THRIVE Score: 0 AUDIT C Alcohol Use Questionnaire (AUDIT-C) 1. How often do you have a drink containing alcohol?: Monthly or less 2. How many drinks containing alcohol do you have on a typical day when you are drinking?: 1 or 2 Total Score: 1 JOSE-7 AMB Questionnaire JOSE-7 Date JOSE - 7 assessed: 06/01/24 Feeling nervous, anxious, or on edge: 3 = Nearly every day Not being able to stop or control worryin = Several days Worrying too much about different things: 1 = Several days Trouble relaxin = Nearly every day Being so restless that it is hard to sit still: 1 = Several days Becoming easily annoyed or irritable: 0 = Not at all Feeling afraid as if something awful might happen: 0 = Not at all Total JOSE-7 score (0-4 normal; 5-9 mild; 10-14 moderate; 15-21 severe): 9 Source: Developed by Drs. Santos Hanna, Delia Kamara, Freddie Ramos and colleagues, with an educational jillian from [employer]. JOSE-7 Assessment Billing JOSE-7 Assessment Tool: JOSE-7 Assessment 63994 Physical exam (Primary Care) Vital Signs: Last Vital Signs Pulse 70 06/01/24 13:29 BP 130/76 06/01/24 13:29 Pulse Ox 95 06/01/24 13:29 Oxygen Delivery Method Room Air 06/01/24 13:29 BMI result Body Mass Index 18.1 Tobacco/Smoking Status: Tobacco use Status Tobacco use date assessed 06/01/24 06/01/24 13:34 Patient Tobacco Use Status Current everyday Tobacco 06/01/24 13:34 Tobacco use type Cigarette 06/01/24 13:34 e-Cigarette/Vaping Use Former Use 06/01/24 13:34 PHQ-9: PHQ-9 Score PHQ-9: Total score 0 06/01/24 13:34 Depression Screening Interpretation: Negative Thrive Assessment: Date of Thrive Assessment Date Thrive assessed 06/01/24 06/01/24 13:34 Currently or been in a relationship where the following occur: No concerns reported Assessment and Plan Assessment & Plan (1) Difficulty sleeping: Code(s): G47.9 - Sleep disorder, unspecified Plan: No?symptoms?convincing?for?sleep?apnea Increasing?her?bupropion Will?give?her?a?script?for?Ambien - advised?she?use?only?when?she?needs?to?and?take?breaks?from?this?medication (2) Smoker: Code(s): F17.200 - Nicotine dependence, unspecified, uncomplicated Plan: Continue?bupropion Patient?would?like?to?try?Chantix Will?send?script (3) Pre-hypertension: Code(s): R03.0 - Elevated blood-pressure reading, without diagnosis of hypertension Plan: Will?continue?to?follow.??May?improve?with?better?control?of?anxiety?and?improved?sleep (4) Lipoma: Code(s): D17.9 - Benign lipomatous neoplasm, unspecified Plan: Lump?at?axilla Exam?and?ultrasound?most?consistent?with?lipoma.??She?does?have?a?follow-up?ultrasound?next?week. We?can?review?results?at?her?next?visit Orders: Orders Hemoglobin A1c Today R73.01 - Impaired fasting glucose Vitamin D 25-OH Total Today E55.9 - Vitamin D deficiency, unspecified Comprehensive [place]. Panel Fast Today Z00.00 - Encounter for general adult medical examination without abnormal findings Medications: New zolpidem (Ambien) 5 mg PO BEDTIME 30 days PRN 15 tabs 0RF sleep varenicline PO PER PKG DIR 42 ea 0RF Changed From bupropion HCl 75 mg PO BID 30 days 60 tabs 1RF To bupropion HCl 100 mg PO BID 30 days 60 tabs 2RF Coding Level of Care Code Est Pt Level 4 (19638) Diagnoses Difficulty sleeping G47.9 Smoker F17.200 Pre-hypertension R03.0 Lipoma D17.9 Additional Codes JOSE-7 Assessment Billing - JOSE-7 Assessment Tool: JOSE-7 Assessment 14153 ([id number])
[2024-06-01 13:29] VITALS: BP 130/76; PULSE 70; O2SAT 95; BMI 18.1
== END 2024-06-01 14:45 | disposition home or self-care (01) ==
PROVIDERS: PCP Family Medicine; Visit Provider Family Medicine
DX: G47.9 Sleep disorder, unspecified (principal); F17.200 Nicotine dependence, unspecified, uncomplicated; R03.0 Elevated blood-pressure reading, without diagnosis of hypertension; D17.9 Benign lipomatous neoplasm, unspecified
CPT/HCPCS: 99214

== ENCOUNTER 2024-06-08 13:07 | Outpatient (REF) | payer OTHER, SELFPAY ==
--- NOTE | ~2024-06-08 | US_ITS ---
EXAMINATION: US CHEST CLINICAL INFORMATION: Left axillary lump COMPARISON: Chest ultrasound November 26, 2023 TECHNIQUE: Grayscale and color Doppler imaging was obtained in the region of the left axilla (area of indicated palpable abnormality). FINDINGS: Corresponding with palpable abnormality is a superficial 3.2 x 3.9 x 0.6 cm hypoechoic avascular mass which contains some thin echogenic septations. There is no well-organized fluid collection in this region. No gross lymphadenopathy. No abnormal color Doppler flow. US/US chest IMPRESSION: Ultrasound findings are most suggestive of a lipoma which is stable in size. The imaging appearance of lipomas by ultrasound is however relatively nonspecific. Consider followup MRI at a later date if the patient reports continued growth of the lesion, increased firmness, increased pain, or decreased lesion mobility. Electronically signed by: Juventino Cabello MD 06/29/2024 07:43 AM EDT
== END 2024-06-08 13:08 | disposition home or self-care (01) ==
LOC: HO.HMGCX 13:07
PROVIDERS: PCP Radiology Diagnostic Radiology; Visit Provider Family Medicine
DX: R22.32 Localized swelling, mass and lump, left upper limb (principal)
CPT/HCPCS: 76604

== ENCOUNTER 2024-06-13 11:01 | Outpatient (REF) | payer OTHER, SELFPAY ==
[2024-06-13 13:44] LABS: Alanine Aminotransferase 13 U/L (0-31); Albumin Level 4.3 g/dL (3.5-5.0); Alkaline Phosphatase 60 U/L (39-117); Anion Gap 13 (12-20); Aspartate Amino Transferase 19 U/L (5-31); Bilirubin Total 0.2 mg/dL (0.0-1.0); Blood Urea Nitrogen 13 mg/dL (9-16); Calcium 9.9 mg/dL (8.4-10.2); Carbon Dioxide 30 mmol/L (22-29); Chloride 102 mmol/L (96-108); Estimated Glomerular Filt Rate > 60; Glucose Fasting 133 mg/dL (60-99); Potassium 3.9 mmol/L (3.3-5.1); Sodium 141 mmol/L (135-145); Total Protein 7.4 g/dL (6.5-8.0)
[2024-06-13 13:55] LABS: Estimated Average Glucose 100 mg/dL; Hemoglobin A1c % 5.1 % (<6.0)
[2024-06-13 14:03] LABS: Vitamin D 25-OH Total 58.6 ng/mL (>30)
== END 2024-06-13 11:02 | disposition home or self-care (01) ==
LOC: HO.HMGCLDS 11:01
PROVIDERS: PCP Family Medicine; Visit Provider Family Medicine
DX: Z00.00 Encounter for general adult medical examination without abnormal findings (principal); R73.03 Prediabetes; R73.01 Impaired fasting glucose; E55.9 Vitamin D deficiency, unspecified
CPT/HCPCS: 36415; 80053; 82306; 83036

== ENCOUNTER 2024-07-13 11:10 | Outpatient (AMB) | payer OTHER, SELFPAY ==
--- NOTE | 2024-07-13 11:29 | MHC.PC.OV ---
Vital Signs 07/13/24 11:31 Height 5 ft 6 in Weight 115 lb 2 oz BMI 18.6 BP 130/80 Blood Pressure Location Rt brachial Position Sitting Respiration 16 Pulse 70 Pulse Source Pulse Oximeter Temp 96.9 F Temp Source Tympanic Pulse Oximetry (%) 99 Oxygen Delivery Method Room Air Intake Visit Reasons: f/u lipoma, labs Intake Note: f/u for lab review Allergies codeine Allergy (Mild, Verified 07/13/24 11:29) Itching trazodone Adverse Reaction (Mild, Verified 07/13/24 11:29) twitching Tobacco use date assessed: 06/01/24 Dental Screening Dental Screen Date: 06/01/24 HPI f/u lipoma, labs HPI Details 53 y/o female presents to f/u lipoma, labs. Labs drawn 06/13/24. Reviewed labs with pt. Fasting glucose 133, A1c 5.1%. Following up on axillary lump - likely a lipoma. L axillary lump ultrasound findings most suggestive of a lipoma, which is stable in size. [facility] Medical History (Updated 07/13/24 @ 12:18 by Landry Hadley MD) COPD (chronic obstructive pulmonary disease) Smoker Cervical disc herniation Carpal tunnel syndrome of right wrist Weight loss Surgical History H/O lymph node excision Family History Mother Allergies Father Rheumatoid arthritis Maternal Uncle Substance abuse Brother Mental health disorder Father Glaucoma Paternal Grandfather Glaucoma Social History (Updated 06/01/24 @ 13:38 by JOSIAH Merlos) Household Members: Spouse Both parents involved: No Caregiver staying overnight: No Housing: House Are you a primary acute care nurse to a significant other at home: No Do you presently have visiting nurse or other home services: No 75 years or older and lives alone: No Alcohol intake: current Alcohol intake frequency: a few times a month Patient Tobacco Use Status: Current everyday Tobacco user Tobacco use type: Cigarette Cigarette Packs Per Day: 0.5 Cigarettes Per Day: 4 e-Cigarette/Vaping Use: Former Use Second Hand Smoke Exposure: Yes Special to needs: No service: No Current occupational status: employed 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 How many drinks containing alcohol do you have on a typical day when you are drinking?: 1 or 2 3. How often do you have six or more drinks on one occasion?: Never Total Score: 0 JOSE-7 AMB Questionnaire JOSE-7 Date JOSE - 7 assessed: 06/01/24 Source: Developed by Drs. Santos Hanna, Delia Kamara, Freddie Ramos and colleagues, with an educational jillian from [employer]. Physical exam (Primary Care) Vital Signs: Last Vital Signs Temp 96.9 F 07/13/24 11:31 Pulse 70 07/13/24 11:31 Resp 16 07/13/24 11:31 BP 130/80 07/13/24 11:31 Pulse Ox 99 07/13/24 11:31 Oxygen Delivery Method Room Air 07/13/24 11:31 BMI result Body Mass Index 18.6 Tobacco/Smoking Status: Tobacco use Status Tobacco use date assessed 06/01/24 07/13/24 11:34 Patient Tobacco Use Status Current everyday Tobacco 07/13/24 11:34 Tobacco use type Cigarette 07/13/24 11:34 e-Cigarette/Vaping Use Former Use 07/13/24 11:34 Thrive Assessment: Date of Thrive Assessment Date Thrive assessed 06/01/24 07/13/24 11:34 Assessment and Plan Assessment & Plan (1) Pre-hypertension: Code(s): R03.0 - Elevated blood-pressure reading, without diagnosis of hypertension Plan: BP still in PreHTN range Watch?salt/sodium?in?diet Will?monitor (2) Lipoma: Code(s): D17.9 - Benign lipomatous neoplasm, unspecified Plan: Six-month?follow-up?ultrasound?shows?stable?lipoma No?further?follow-up?is?needed?at?this?time She?will?let?me?know?if?there?are?any?changes (3) Elevated fasting glucose: Code(s): R73.01 - Impaired fasting glucose Plan: Elevated?fasting?blood?sugars?but?her?A1c?is?within?normal?range Likely?is?some?insulin?resistance?however Encouraged?diet?lower?in?sugars?and?starches (4) Acid reflux: Comment: Pleasant, extremely anxious- HP stool antigen-negative Code(s): K21.9 - Gastro-esophageal reflux disease without esophagitis Plan: Continue?pantoprazole (5) Pain of left thumb: Code(s): M79.645 - Pain in left finger(s) Plan: Base?of?left?thumb?and?wrist?pain-likely?de?Quervain?tenosynovitis Trial?occupational?therapy Topical?NSAIDs (6) Forearm tendonitis: Code(s): M77.8 - Other enthesopathies, not elsewhere classified Plan: Occupational?therapy?and?topical?NSAIDs If?not?improving,?will?refer?her?back?to?her?umbrella tipper hand. Orders: Orders UA and rflx microscopic Today Z00.00 - Encounter for general adult medical examination without abnormal findings Vitamin D 25-OH Total Today E55.9 - Vitamin D deficiency, unspecified Hemoglobin A1c Today R73.01 - Impaired fasting glucose Comprehensive [place]. Panel Fast Today Z00.00 - Encounter for general adult medical examination without abnormal findings Microalbumin, Random (w Creat) Today I10 - Essential (primary) hypertension Lipid Panel Today Z00.00 - Encounter for general adult medical examination without abnormal findings TSH reflex Free T4 Today Z00.00 - Encounter for general adult medical examination without abnormal findings OT Evaluation and Treatment Today M77.8 - Other enthesopathies, not elsewhere classified, M79.645 - Pain in left finger(s) Coding Level of Care Code Est Pt Level 4 (65426) Diagnoses Pre-hypertension R03.0 Lipoma D17.9 Elevated fasting glucose R73.01 Acid reflux K21.9 Pain of left thumb M79.645 Forearm tendonitis M77.8
[2024-07-13 11:31] VITALS: BP 130/80; PULSE 70; RESP 16; TEMP 36.1; O2SAT 99; BMI 18.6
== END 2024-07-13 12:17 | disposition home or self-care (01) ==
PROVIDERS: PCP Family Medicine; Visit Provider Family Medicine
DX: R03.0 Elevated blood-pressure reading, without diagnosis of hypertension (principal); D17.9 Benign lipomatous neoplasm, unspecified; R73.01 Impaired fasting glucose; K21.9 Gastro-esophageal reflux disease without esophagitis; M79.645 Pain in left finger(s)
CPT/HCPCS: 99214

== ENCOUNTER 2025-02-28 16:05 | Outpatient (AMB) | payer OTHER, SELFPAY ==
[2025-02-28 16:12] VITALS: BP 142/82; PULSE 97; RESP 16; TEMP 36.5; O2SAT 98; BMI 17.9
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
[2025-02-28 16:21] VITALS: BP 136/69
--- OUTSIDE RECORDS SUMMARY | 2025-02-28 16:42 | XMS_ITS | Clinical Summary ---
Author Organization [facility] ity Address [address] [place] [address] Care Team Providers Care Bulwark Carpenter Name Role Phone Unavailable Primary Care Provider Unavailabl e Social History Tobacco Use Types Packs/Day Years Used Date Smoking Tobacco: Never Assessed Comments Unknown Sex and Gender Information Value Date Recorded Sex Assigned at Not on file Legal Sex Female 10:51 AM EST Gender Identity Not on file Sexual Orientation Not on file Plan of Treatment Health Maintenance Due Date Last Done Comments Breast Cancer Screening 1968 DTaP,Tdap,and Td Vaccines (1 - Tdap) 1987 Hepatitis B Vaccines (1 of 3 - 19+ 3-dose series) 1987 Cervical Cancer Screening: P ap Smear 1989 Pneumococcal Vaccine: 50+ Ye ars (1 of 1 - PCV) 2018 Zoster Vaccines (1 of 2) 2018 COVID-19 Vaccine ( - 2023-2 5 season) 2024 Influenza Vaccine (Season Ended) 2025 HIB Vaccines Aged Out No longer eligi ble based on patient's age to complete this topic HPV Vaccines Aged Out No longer eligi ble based on patient's age to complete this topic Hepatitis A Vaccines Aged Out No long er eligible based on patient's age to complete this topic IPV Vaccines Aged Out No longer eligi ble based on patient's age to complete this topic MMR Vaccines Aged Out No longer eligi ble based on patient's age to complete this topic Meningococcal ACWY Vaccine Aged Out N o longer eligible based on patient's age to complete this topic Meningococcal B Vaccine Aged Out No l onger eligible based on patient's age to complete this topic Pneumococcal Vaccine: Pediat rics (0 to 5 Years) and At-Risk Patients (6 to 64 Years) Aged Out No longer eligible b ased on patient's age to complete this topic RSV Immunization Patients Un ted 20 months Aged Out No longer eligible b ased on patient's age to complete this topic Varicella Vaccines Aged Out No longer eligible based on patient's age to complete this topic
== END 2025-02-28 16:53 | disposition home or self-care (01) ==
LOC: HO.HMCFM 16:06
PROVIDERS: PCP Family Medicine; Visit Provider Family Medicine
DX: Z00.00 Encounter for general adult medical examination without abnormal findings (principal); R73.01 Impaired fasting glucose; T78.40XA Allergy, unspecified, initial encounter; Z12.31 Encounter for screening mammogram for malignant neoplasm of breast; Z12.11 Encounter for screening for malignant neoplasm of colon; F17.200 Nicotine dependence, unspecified, uncomplicated